=== PATIENT | female | born 1950 | race Caucasian/White ===

== ENCOUNTER 2018-09-30 06:03 | Inpatient (IN) ==
[2018-09-30] MEDS ORDERED: CeFAZolin Syr 2,000MG/20 ML 2,000 MG/20 ML SYRINGE IVPB ONE (06:19)
[2018-09-30] MEDS ORDERED: Ringers Solution, Lactated 1,000 ML IVC SCH ×3 (06:30→12:30)
--- NOTE | 2018-09-30 06:51 | Anesthesia Evaluation PreOp ---
Date of Encounter: 09/30/18 Time of Encounter: 06:49 - Past History Planned Operation: PLIF L4-5 Cardiac History: HTN, Hyperlipidemia Pulmonary History: Denies Any Significant HX INSERT CUTTER History: Other (anxiety, depression) Other Medical History: Denies Any Significant HX Anesthesia History: No Prior Anesthetic Complications, Past Anesthesia (tonsils) Alcohol Use: none Drug use: none Medications and Allergies Allergy/AdvReac Type Severity Reaction Status Date / Time aspirin [ASA] AdvReac Gastrointestinal Verified 07/17/16 14:44 Upset NSAIDS (Non-Steroidal AdvReac Gastrointestinal Verified 07/17/16 14:44 Anti-Inflamma Upset - Meds/Allergy Pre-op Review Medications Reviewed: Yes Allergies Reviewed: Yes Beta Blockers on Current Med List: Yes If Beta Blockers taken, Date/Time (Last Dose taken): today 444 Anesthesia Results - Labs Selected Entries 09/30/18 06:35 Temperature 98.6 F Pulse Rate 65 Respiratory Rate 18 Blood Pressure 146/80 O2 Sat by Pulse Oximetry 95 Laboratory Tests 09/24/18 09/24/18 14:50 14:50 Hgb 13.1 Hct 40.7 Plt Count 298 Sodium 137 Potassium 3.6 BUN 11 Creatinine 0.79 - Imaging EKG: report reviewed (SINUS RHYTHM POSSIBLE LEFT ATRIAL ENLARGEMENT INCOMPLETE RIGHT BUNDLE BRANCH BLOCK POSSIBLE ANTERIOR MYOCARDIAL INFARCTION, OF INDETERMINATE AGE) Anesthesia Exam Selected Entries 09/30/18 06:35 Temperature 98.6 F Pulse Rate 65 Respiratory Rate 18 Blood Pressure 146/80 O2 Sat by Pulse Oximetry 95 Weight: 91kg BMI 34 NPO (# of Hours): 8 - HEENT Pupil (Motor): EOMI Mallampati: III Teeth: Missing, Poor dentition Oral Opening: Less than or equal to 3 - INSERT CUTTER LOC: Oriented INSERT CUTTER Motor: Normal RUE, Normal LUE, Normal RLE, Normal LLE, Normal Face INSERT CUTTER Sensory: Normal: RUE, LUE, RLE, LLE, Face - Cardiac Rhythm: Regular Murmur: None - Pulmonary Breath Sounds: bilateral Clear Respiratory Effort: Symmetrical Anesthesia Assess/Plan ASA Score: 3 Level of consciousness: Cooperative, Oriented, Tranquil Anesthetic Plan: General Monitoring Plan: Standard Monitors Recovery Plan: PACU (agrees to GA)
[2018-09-30] MEDS ORDERED: *HR* Rocuronium Bromide 50 MG/5 ML VIAL ONE (07:03)
[2018-09-30] MEDS ORDERED: Dexamethasone 4 MG/ML VIAL ONE (07:03)
[2018-09-30] MEDS ORDERED: *HR* Propofol 200 MG/20 ML VIAL IVP ONE (07:03)
[2018-09-30] MEDS ORDERED: Ondansetron 4 MG/2 ML VIAL ONE (07:03)
[2018-09-30] MEDS ORDERED: Lidocaine -MPF 2% 2 ML VIAL ONE (07:03)
[2018-09-30] MEDS ORDERED: *HR* Remifentanil 1 MG VIAL IVP ONE ×2 (07:04→08:56)
[2018-09-30] MEDS ORDERED: *HR* Methadone 10 MG TABLET PO ONE (07:05)
[2018-09-30] MEDS ORDERED: Gabapentin 300 MG CAPSULE PO ONE (07:06)
[2018-09-30] MEDS ORDERED: *HR* Midazolam HCl 2 MG/2 ML VIAL IVP PRN (07:07)
[2018-09-30] MEDS ORDERED: *HR* OxyCODONE Immed Rel 5 MG TABLET PO PRN (07:07)
[2018-09-30] MEDS ORDERED: *HR* Promethazine 25 MG/ML VIAL IVP PRN (07:07)
--- NOTE | 2018-09-30 07:29 | History & Physical Report ---
Date of Encounter: 09/30/18 Time of Encounter: 07:28 24 Hour HP Update - Instructions Instructions: If the History and Physical is less than 30 days old and was completed prior to A.M. admission and or procedure and has NOT been updated on calendar day of procedure please complete this update prior to performing procedure. - Update Patient reports changes in Medical Condition: No Changes in examination, assessment, or condition: No Changes in Medication: No Preop tests/diagnostics Reviewed: Yes Pre-Op MRSA Screen: Negative Surgery Remains Indicated: Yes Consent for Planned Operative Procedure(s) Verified: Yes - Pre-Operative Checklist Preoperative Checklist Indicated: No Prophylactic Antibiotic Ordered: Yes Home Medications Include Beta Tip: Yes Beta Tip Taken Today (Day of Surgery): No Beta Tip Taken Yesterday (Day Prior to Surgery): Yes Is VTE Prophylaxis Indicated?: Yes
[2018-09-30] MEDS ORDERED: Bacitracin 50,000 UNIT, Polymyxin B Sulfate 500,000 UNIT, Sodium Chloride IRRigation 1,... IR ONE (07:45)
[2018-09-30] MEDS ORDERED: *HR* Succinylcholine 200 MG/10 ML VIAL IVP ONE (07:50)
[2018-09-30] MEDS ORDERED: *HR* FentaNYL (PF) 100 MCG/2 ML VIAL ONE (07:51)
[2018-09-30] MEDS ORDERED: EPHEDrine 50 MG/ML VIAL ONE (08:10)
[2018-09-30] MEDS ORDERED: Neostigmine Methylsulfate 3 MG/3 ML SYRINGE ONE (10:52)
[2018-09-30] MEDS ORDERED: *HR* HYDROMORPHONE 2 MG/ML VIAL ONE (11:03)
--- NOTE | 2018-09-30 11:07 | Orthopedic Operative Note ---
Date of procedure: 09/30/18 Pre-op diagnosis: Spondylolisthesis, lumbar stenosis, lumbar radiculopathy Post-op diagnosis: same Operation/Findings: Posterior lumbar interbody fusion L4-L5: The patient successfully underwent general endotracheal anesthesia. The patient was given antibiotics prior to the start of the procedure. Compression boots and stockings were used for deep vein thrombosis prophylaxis. A Monaco catheter was placed. Leads for neuro monitoring were placed on the upper and lower extremities. This included the cranium. The neuro monitoring personnel confirmed there were satisfactory readings prior to the start of the procedure. The patient was turned prone on the Kevin table. The back was prepped and draped in the usual sterile fashion. An incision was was marked and centered over the involved L4-L5 levels in the mid line. The incision was deepened through the lumbar fascia. Bovie cautery and Osborne elevators were used to reflect the paraspinal musculature at the lateral extent of the transverse processes of the involved L4 and L5 levels. Kait clamps were placed over the L4 and L5 spinous processes. An intraoperative lateral fluorograph was obtained. A conversation was held between the surgeon and radiologist and both confirmed we had the correct operative levels. We then placed pedicle screws in standard fashion with the aid of fluoroscopy and anatomic landmarks. Briefly a starter awl was used. A gearshift was subsequently used to enter the airplane pilot commercial hole via a transpedicular route into the vertebral body. The airplane pilot commercial hole was tapped with an undersized instrument, and subsequently four 6.5 x 40 mm pedicle screws were placed bilaterally at the indicated L4 and L5 levels. The screws were tested with the aid of the neurologic monitoring staff via pedicle screw stimulation. All reading suggested there was no significant cortical wall breech. The screws were also evaluated fluoro- graphically and appeared to be in satisfactory position. We then turned our attention to the decompression portion of the procedure. We removed the supraspinous and interspinous ligaments and subsequently the insertion of the ligamentum flavum on the undersurface of the proximal L4 lamina was dislodged with a curette. We then removed the ligamentum flavum as well as undercut the facets at this L4-L5 level to decompress the lateral recesses. We also performed a L4 laminectomy. After the decompression, which was over and above that which was required to place the interbody graft, the foramen and traversing roots at this L4-L5 level were found to be free and patent. We also took part of the medial facets in order to aid in the decompression. We then protected the neural elements including the thecal sac and traversing nerve root on the right with a dural retractor. We made an annulotomy into the L4-L5 disc space and then removed disc material using Pituitary instruments. We trialed various size grafts after the endplates were prepared for graft insertion. A 10 x 26 enter body graft fit well within the L4-L5 disc space. We obtained some bone from the right posterior superior iliac spine through us a separate incision and combined with this with the bone which we had saved from the laminectomy portion of the procedure. This autograft bone was first placed in the anterior portion of the L4-L5 disc space and additional bone was placed within the interbody graft spacer. We then placed the interbody graft spacer obliquely across the L4-L5 disc space towards the midline while protecting the neural elements with a root retractor. When the graft was found to be in satisfactory position the microstrategy architect developer was removed. We then copiously irrigated the wound. We then decorticated the L4 and L5 transverse processes as well as the facet joints of the involved L4 and L5 levels to aid in the posterolateral fusion. We placed autograft bone in the lateral gutters over these regions. We then placed rods within the screw heads of the involved L4 and L5 levels and first locked the distal screws and then subsequently locked the proximal screws so as to improve and reduce the spondylolisthesis previously seen. We then closed the wound in layers with 1 Vicryl for the fascia, 2-0 Vicryl. Subcutaneous tissue, and Dermabond was used for skin closure. Sterile dressings were placed over the wound. The patient was turned supine on a hospital bed and extubated. All sponge instruments and needle counts were correct at the end of the procedure. The patient tolerated the procedure well without complications. Anesthesia: GETA Surgeon: Klaus Jacobo Jr Was there an research assistant member present: No Estimated blood loss (cc): 100 Specimen: None Condition: stable Disposition: PACU
[2018-09-30] MEDS: *HR* FentaNYL (PF) 100 MCG/2 ML VIAL IVP PRN ×4 (11:30→11:45)
--- NOTE | 2018-09-30 12:18 | Anesthesia Evaluation Post Op ---
Date of Encounter: 09/30/18 Time of Encounter: 12:00 - Vital Signs Vital Signs: Selected Entries 09/30/18 11:50 09/30/18 12:00 Temperature 98.5 F Pulse Rate 61 Respiratory Rate 16 Blood Pressure 120/79 O2 Sat by Pulse Oximetry 95 - Lungs Lungs: Clear Ascult./Percussion - Airway Airway: Non-obstructed - Cardiovascular Regular Rate - Mental Status Mental Status: Alert & Oriented, Answers Appropriately - Pain Pain Scale: 3 Pain Scale used: Numeric (1 - 10) - Nausea Vomiting Nausea Vomiting: Not Present - Hydration Hydration: Ice chips, Monaco catheter - Discharge PostOp Status: Transfer Patient to floor
[2018-09-30] MEDS ORDERED: Acetaminophen 325 MG TABLET PO PRN (12:30)
[2018-09-30] MEDS ORDERED: Naloxone 0.4 MG/ML INJ IVP PRN (12:30)
[2018-09-30] MEDS ORDERED: Ondansetron 4 MG/2 ML VIAL IVP PRN (12:30)
[2018-09-30] MEDS: *HR* HYDROcodone/Acet 5/325 mg TABLET PO PRN ×2 (13:18→21:20)
[2018-09-30] MEDS: Gabapentin 400 MG CAPSULE PO SCH ×2 (14:59→20:55)
[2018-09-30] MEDS: Methocarbamol 500 MG TABLET PO SCH ×2 (14:59→20:56)
[2018-09-30] MEDS: *HR* OxyCODONE Immed Rel 5 MG TABLET PO PRN (17:41)
[2018-09-30] MEDS: hydrOXYzine pamoate 25 MG CAPSULE PO SCH (20:55)
[2018-09-30] MEDS: cloNIDine HCl 0.1 MG TABLET PO SCH (20:55)
[2018-09-30] MEDS: traZODone 50 MG TABLET PO SCH (20:56)
[2018-10-01] MEDS: *HR* OxyCODONE Immed Rel 5 MG TABLET PO PRN ×5 (00:24→21:08)
[2018-10-01] MEDS: *HR* HYDROcodone/Acet 5/325 mg TABLET PO PRN ×2 (08:43→18:26)
[2018-10-01] MEDS: cloNIDine HCl 0.1 MG TABLET PO SCH ×2 (08:43→21:08)
[2018-10-01] MEDS: hydrOXYzine pamoate 25 MG CAPSULE PO SCH ×2 (08:43→21:07)
[2018-10-01] MEDS: Methocarbamol 500 MG TABLET PO SCH ×3 (08:43→21:08)
[2018-10-01] MEDS: hydroCHLOROthiazide 25 MG TABLET PO SCH (08:43)
[2018-10-01] MEDS: Gabapentin 400 MG CAPSULE PO SCH ×3 (08:43→21:08)
--- NOTE | 2018-10-01 08:59 | Orthopedics Progress Note ---
Date of Encounter: 10/01/18 Time of Encounter: 08:59 - Assessment and Plan (1) Spondylisthesis Current Visit: Yes Status: Acute Qualifiers: Spinal region: unspecified Qualified Code(s): M43.10 - Spondylolisthesis, site unspecified (2) Lumbar stenosis Current Visit: Yes Status: Chronic Qualifiers: Neurogenic claudication status: unspecified Qualified Code(s): M48.061 - Spinal stenosis, lumbar region without neurogenic claudication (3) Lumbar radiculopathy Current Visit: Yes Status: Chronic (4) Status post lumbar spinal fusion Current Visit: Yes Status: Chronic Subjective Principal diagnosis: s/p PLIF Interval history: Date of procedure: 09/30/18 Pre-op diagnosis: Spondylolisthesis, lumbar stenosis, lumbar radiculopathy Post-op diagnosis: same Operation/Findings: Posterior lumbar interbody fusion L4-L5 The patient is without complaints. Admits to ongoing preoperative symptoms though states it is mildly improved. Pain in low back, buttocks. Labs and vitals reviewed. LSO in place. Neurovascularly intact with regard to bilateral lower extremities. Fires all upper and lower extremity motor groups. Assessment :stable. Plan mobilize ,continue analgesics as needed, discharge planning - awaiting PT recommendations Objective Vital signs: Vital Signs Temp Pulse Resp BP Pulse Ox 10/01/18 06:46 98.4 F 67 18 107/60 98 10/01/18 04:03 97.9 F 66 17 113/66 98 09/30/18 22:36 97.6 F 61 14 115/67 96 09/30/18 18:40 97.8 F 77 17 113/67 98 09/30/18 15:40 98.2 F 72 18 128/76 96 09/30/18 14:35 98.2 F 75 16 115/76 96 09/30/18 14:00 96 09/30/18 13:25 98.2 F 64 15 130/78 96 09/30/18 13:04 98.0 F 64 17 107/63 97 09/30/18 12:39 98.4 F 62 16 135/78 95 09/30/18 12:20 98.2 F 62 16 127/70 95 09/30/18 12:10 98.0 F 61 16 131/79 94 09/30/18 12:00 61 16 120/79 95 09/30/18 11:50 98.5 F 64 16 144/71 94 09/30/18 11:40 64 16 158/84 93 09/30/18 11:30 67 16 165/118 94 09/30/18 11:20 98.0 F 70 16 197/98 98 Intake and Output 09/30/18 10/01/18 10/01/18 23:59 07:59 15:59 Intake Total 950 / 950 50 / 50 Output Total 1500 / 1500 1700 / 1700 Balance -550 / -550 -1650 / -1650 Intake: IV Fluids 200 / 200 Ancef 2,000 MG In 0.9 % Sodium 200 / 200 Chloride 100 ML @ 200 mls/hr IVPB Q8HR [facility] Rx#:[id number] Oral 750 / 750 50 / 50 Output: Catheter 1500 / 1500 1700 / 1700 Other: Meal Dinner Consult Discharge Plan - Plan Prescriptions: RX: OxyCODONE Immed Rel [Roxicodone 5 MG] 5 mg PO Q6HR PRN 5 Days #20 tablet PRN Reason: Breakthrough Pain RX: diazePAM [Valium] 2 mg PO Q6H PRN 7 Days #28 tablet PRN Reason: pain/spasms RX: Docusate Sodium [Colace] 100 mg PO BID 5 Days #10 capsule
[2018-10-01] MEDS ORDERED: CITALOPRAM HYDROBROMIDE PO SCH (09:00)
[2018-10-01] MEDS: traZODone 50 MG TABLET PO SCH (21:08)
[2018-10-02] MEDS: *HR* OxyCODONE Immed Rel 5 MG TABLET PO PRN ×4 (02:28→17:51)
--- NOTE | 2018-10-02 08:43 | Discharge Summary ---
Orders not resulted at time of discharge: Pending orders 09/30/18 XR fluoroscopy <1 hr [XR] Routine 10/03/18 07:00 XR lumbar spine 2-3V [XR] Routine Date of Encounter: 10/02/18 - Hospital Course Hospital course: Ms. Garcia is a 68 year old female - Time Spent with Patient Total time spent providing and/or coordinating discharge services: - Discharge Medications Prescriptions: No Action Citalopram Hydrobromide [Citalopram HBr] 80 mg PO DAILY cloNIDine HCl [CloNIDine HCl] 0.1 mg PO BID Gabapentin 800 mg PO TID hydroCHLOROthiazide [Hydrochlorothiazide] 25 mg PO DAILY HYDROcodone/Acet 7.5/325 mg [[place] 7.5-325 mg] 1 tab PO QID hydrOXYzine pamoate [HydrOXYzine Pamoate] 25 mg PO BID Methocarbamol [Robaxin] 500 mg PO TID Metoprolol Tartrate 50 mg PO BID Simvastatin [Zocor] 40 mg PO HS Trazodone HCl 150 mg PO HS Home Medications: Citalopram Hydrobromide [Citalopram HBr] 80 mg PO DAILY 09/30/18 [History] Gabapentin 800 mg PO TID 09/30/18 [History] HYDROcodone/Acet 7.5/325 mg [[place] 7.5-325 mg] 1 tab PO QID 09/30/18 [History] Methocarbamol [Robaxin] 500 mg PO TID 09/30/18 [History] Metoprolol Tartrate 50 mg PO BID 09/30/18 [History] Simvastatin [Zocor] 40 mg PO HS 09/30/18 [History] Trazodone HCl 150 mg PO HS 09/30/18 [History] cloNIDine HCl [CloNIDine HCl] 0.1 mg PO BID 09/30/18 [History] hydrOXYzine pamoate [HydrOXYzine Pamoate] 25 mg PO BID 09/30/18 [History] hydroCHLOROthiazide [Hydrochlorothiazide] 25 mg PO DAILY 09/30/18 [History] Allergies/Adverse Reactions: Allergy/AdvReac Type Severity Reaction Status Date / Time aspirin [ASA] AdvReac Gastrointestinal Verified 07/17/16 14:44 Upset NSAIDS (Non-Steroidal AdvReac Gastrointestinal Verified 07/17/16 14:44 Anti-Inflamma Upset Date of admission: 09/30/18 12:15 Primary care physician: Chanelle Lima CNP Consults: 09/30/18 12:30 Consult to Occupational Therapy [CONS] Routine Comment: Evaluate, develop and implement POC Reason for Consult: Postoperative rehabilitation Does patient have active BEDREST order?: No Is patient medically & hemodynamically stable?: Yes Patient assessed for mobility or mobilized this visit?: No Consult to Physical Therapy [CONS] Routine Comment: Evaluate, develop and implement POC Reason for Consult: Postoperative rehabilitation Does patient have active BEDREST order?: No Is patient medically & hemodynamically stable?: Yes Patient assessed for mobility or mobilized this visit?: No Consult to Spine Navigator [CONS] [CONS] Routine - Impressions ITS Impressions Lumbar Spine X-Ray 09/30/18 00:00 IMPRESSION: 1. Status post L4/L5 posterior fusion and discectomy. No evidence of complication. 2. Mild multilevel degenerative disc disease. D/ / Branden Cartwright MD / Branden Cartwright MD Interpreting Provider: Branden Cartwright MD - Discharge Instructions Follow Up With: Chanelle Lima CNP [Primary Care Provider] -
[2018-10-02] MEDS: hydrOXYzine pamoate 25 MG CAPSULE PO SCH ×2 (09:15→21:12)
[2018-10-02] MEDS: Gabapentin 400 MG CAPSULE PO SCH ×3 (09:16→21:12)
[2018-10-02] MEDS: hydroCHLOROthiazide 25 MG TABLET PO SCH (09:17)
[2018-10-02] MEDS: Methocarbamol 500 MG TABLET PO SCH ×3 (09:17→21:12)
[2018-10-02] MEDS: cloNIDine HCl 0.1 MG TABLET PO SCH ×2 (09:18→21:12)
[2018-10-02] MEDS ORDERED: diazePAM 2 MG TABLET PO PRN (12:22)
--- NOTE | 2018-10-02 13:07 | Orthopedics Progress Note ---
Date of Encounter: 10/02/18 Time of Encounter: 09:20 - Assessment and Plan (1) Spondylisthesis Current Visit: Yes Status: Chronic Qualifiers: Spinal region: unspecified Qualified Code(s): M43.10 - Spondylolisthesis, site unspecified (2) Lumbar radiculopathy Current Visit: Yes Status: Chronic (3) Lumbar stenosis Current Visit: Yes Status: Chronic Qualifiers: Neurogenic claudication status: unspecified Qualified Code(s): M48.061 - Spinal stenosis, lumbar region without neurogenic claudication (4) Status post lumbar spinal fusion Current Visit: Yes Status: Chronic Subjective Principal diagnosis: s/p PLIF Interval history: Date of procedure: 09/30/18 Pre-op diagnosis: Spondylolisthesis, lumbar stenosis, lumbar radiculopathy Post-op diagnosis: same Operation/Findings: Posterior lumbar interbody fusion L4-L5 The patient is c/o significant pain uncontrolled with current medication regimen. Admits to ongoing preoperative symptoms though states it is mildly improved. Pain in low back, buttocks. Patient asking for change in medication regimen. Patient noted to take narcotic medication chronically - discussed tolerance may be part of issue - will add valium and lidoderm patch to aid as patient already taking Oxycodone, [place], Gabapentin, Robaxin and Acetaminophen. Labs and vitals reviewed. No drainage noted to dressing. Neurovascularly intact with regard to bilateral lower extremities. Fires all upper and lower extremity motor groups. Assessment :stable. Plan mobilize ,continue analgesics as noted, discharge planning - HH recom mendation from PT - discussed with patient re: discharge today as per Dr. Jacobo however patient states in too much pain and states will stay tonight to work on pain control. Will work on improved pain control and plan for discharge tomorrow, 10/03. Objective Vital signs: Vital Signs Temp Pulse Resp BP Pulse Ox 10/02/18 10:53 98.4 F 89 16 101/62 90 10/02/18 08:13 99.3 F 83 16 118/67 95 10/02/18 06:52 98.9 F 83 16 126/73 90 10/02/18 04:15 99.8 F H 78 18 97/60 91 10/01/18 23:34 98.3 F 82 18 107/63 92 10/01/18 18:56 98.8 F 75 17 130/76 94 04/04/19 15:52 115/68 10/01/18 15:33 98.8 F 75 18 105/6 96 10/01/18 13:48 98.5 F 67 98 111/64 Intake and Output 10/01/18 10/02/18 10/02/18 23:59 07:59 15:59 Intake Total 50 / 50 250 / 250 360 / 360 Output Total 250 / 250 Balance 50 / 50 250 / 250 110 / 110 Intake: Oral 50 / 50 250 / 250 360 / 360 Output: Urine 250 / 250 Other: Meal Breakfast Percent of Meal Consumed 100% # Voids 1 1 Weight 90.8 kg Patient Weight 10/02/18 23:59 Weight 90.8 kg Consult Discharge Plan - Plan Referrals: Chanelle Lima CNP [Primary Care Provider] - Prescriptions: RX: OxyCODONE Immed Rel [Roxicodone 5 MG] 5 mg PO Q6HR PRN 5 Days #20 tablet PRN Reason: Breakthrough Pain RX: diazePAM [Valium] 2 mg PO Q6H PRN 7 Days #28 tablet PRN Reason: pain/spasms RX: Docusate Sodium [Colace] 100 mg PO BID 5 Days #10 capsule
[2018-10-02] MEDS: traZODone 50 MG TABLET PO SCH (21:12)
[2018-10-03] MEDS: *HR* OxyCODONE Immed Rel 5 MG TABLET PO PRN ×3 (02:12→15:54)
[2018-10-03] MEDS: cloNIDine HCl 0.1 MG TABLET PO SCH ×2 (07:33→20:40)
[2018-10-03] MEDS: Methocarbamol 500 MG TABLET PO SCH ×3 (07:33→20:40)
[2018-10-03] MEDS: Gabapentin 400 MG CAPSULE PO SCH ×3 (07:33→20:40)
[2018-10-03] MEDS: hydrOXYzine pamoate 25 MG CAPSULE PO SCH ×2 (07:33→20:40)
[2018-10-03] MEDS: hydroCHLOROthiazide 25 MG TABLET PO SCH (07:34)
--- NOTE | 2018-10-03 15:39 | Orthopedics Progress Note ---
Date of Encounter: 10/03/18 Time of Encounter: 15:37 Subjective Principal diagnosis: Status PLIF Interval history: Patient reports pain is improving, painful getting out of bed once she ambulates the pain is gone Back: Dressings clean dry intact Bilateral calves soft and nontender Grossly neurovascular intact distally Assessment postoperative day #4 status post PLIF, improving pain Plan: Discharge home tomorrow morning Continue pain control Objective Vital signs: Vital Signs Temp Pulse Resp BP Pulse Ox 10/03/18 07:08 99.4 F 74 14 110/66 97 10/02/18 23:14 99.2 F 79 16 118/70 92 10/02/18 19:07 99.3 F 81 17 112/68 91 10/02/18 15:44 99.9 F H 81 16 118/72 90 Intake and Output 10/02/18 10/03/18 10/03/18 23:59 07:59 15:59 Intake Total 200 / 200 Balance 200 / 200 Intake: Oral 200 / 200 Other: Meal Breakfast Percent of Meal Consumed 100% # Voids 1 1 Consult Discharge Plan - Plan Referrals: Chanelle Lima, RECE[employer]ING [employer] C[employer]ODIAN [Primary Care Provider] - Prescriptions: OxyCODONE Immed Rel [Roxicodone 5 MG] 5 mg PO Q6HR PRN 5 Days #20 tablet PRN Reason: Breakthrough Pain diazePAM [Valium] 2 mg PO Q6H PRN 7 Days #28 tablet PRN Reason: pain/spasms Docusate Sodium [Colace] 100 mg PO BID 5 Days #10 capsule
[2018-10-03] MEDS: traZODone 50 MG TABLET PO SCH (20:39)
[2018-10-04] MEDS: *HR* OxyCODONE Immed Rel 5 MG TABLET PO PRN ×5 (03:08→21:06)
[2018-10-04] MEDS: hydroCHLOROthiazide 25 MG TABLET PO SCH (08:20)
[2018-10-04] MEDS: cloNIDine HCl 0.1 MG TABLET PO SCH ×2 (08:20→20:56)
[2018-10-04] MEDS: hydrOXYzine pamoate 25 MG CAPSULE PO SCH ×2 (08:20→20:56)
[2018-10-04] MEDS: Gabapentin 400 MG CAPSULE PO SCH ×3 (08:20→20:56)
[2018-10-04] MEDS: Methocarbamol 500 MG TABLET PO SCH ×3 (08:20→20:56)
--- NOTE | 2018-10-04 13:51 | Orthopedics Progress Note ---
Date of Encounter: 10/04/18 Time of Encounter: 13:50 Subjective Principal diagnosis: s/p PLIF Interval history: Patient reports pain is improving, painful getting out of bed once she ambulates the pain is gone Pt was supposed to leave this am, but waiting on hospital bed tomorrow Bilateral calves soft and nontender Grossly neurovascular intact distally Assessment postoperative day #5 status post PLIF, improving pain Plan: Discharge home tomorrow morning Continue pain control Objective Vital signs: Vital Signs Temp Pulse Resp BP Pulse Ox 10/04/18 12:33 98.3 F 79 15 106/68 96 10/04/18 07:50 98.0 F 68 16 122/61 94 10/04/18 04:28 98.4 F 73 20 102/63 94 10/03/18 22:18 99.1 F 77 16 106/67 95 10/03/18 19:45 98.8 F 82 16 125/64 93 10/03/18 16:07 99.0 F 79 16 109/58 94 Intake and Output 10/03/18 10/04/18 10/04/18 23:59 07:59 15:59 Intake Total 550 / 550 0 / 0 640 / 640 Output Total 0 / 0 0 / 0 Balance 550 / 550 0 / 0 640 / 640 Intake: Oral 550 / 550 0 / 0 640 / 640 Output: Urine 0 / 0 0 / 0 Other: Meal Lunch Percent of Meal Consumed 70% # Voids 1 1 1 Weight 91.78 kg Patient Weight 10/04/18 23:59 Weight 91.78 kg Consult Discharge Plan - Plan Referrals: Chanelle Lima, C[employer]IER AND SALESPERSON [Primary Care Provider] - Prescriptions: OxyCODONE Immed Rel [Roxicodone 5 MG] 5 mg PO Q6HR PRN 5 Days #20 tablet PRN Reason: Breakthrough Pain diazePAM [Valium] 2 mg PO Q6H PRN 7 Days #28 tablet PRN Reason: pain/spasms Docusate Sodium [Colace] 100 mg PO BID 5 Days #10 capsule
[2018-10-04] MEDS: traZODone 50 MG TABLET PO SCH (20:56)
[2018-10-05] MEDS: *HR* OxyCODONE Immed Rel 5 MG TABLET PO PRN ×2 (06:58→11:21)
[2018-10-05] MEDS: hydrOXYzine pamoate 25 MG CAPSULE PO SCH (07:54)
[2018-10-05] MEDS: cloNIDine HCl 0.1 MG TABLET PO SCH (07:54)
[2018-10-05] MEDS: Methocarbamol 500 MG TABLET PO SCH (07:54)
[2018-10-05] MEDS: Gabapentin 400 MG CAPSULE PO SCH (07:54)
[2018-10-05] MEDS: hydroCHLOROthiazide 25 MG TABLET PO SCH (07:54)
[2018-10-05 10:54] VITALS: BP 115/71
--- NOTE | 2018-10-05 12:11 | Discharge Summary ---
Orders not resulted at time of discharge: Pending orders 09/30/18 XR fluoroscopy <1 hr [XR] Routine Date of Encounter: 10/05/18 Time of Encounter: 08:40 - Discharge Diagnosis (1) Spondylisthesis Priority: Primary Status: Chronic Qualifiers: Spinal region: unspecified Qualified Code(s): M43.10 - Spondylolisthesis, site unspecified (2) Lumbar radiculopathy Priority: Primary Status: Chronic (3) Lumbar stenosis Priority: Primary Status: Chronic Qualifiers: Neurogenic claudication status: unspecified Qualified Code(s): M48.061 - Spinal stenosis, lumbar region without neurogenic claudication (4) Status post lumbar spinal fusion Priority: Primary Status: Chronic - Hospital Course Hospital course: Ms. Garcia is a 68 year old female Date of procedure: 09/30/18 Pre-op diagnosis: Spondylolisthesis, lumbar stenosis, lumbar radiculopathy Post-op diagnosis: same Operation/Findings: Posterior lumbar interbody fusion L4-L5 The patient had an uneventful postoperative course. Progressed from intravenous analgesic needs to oral analgesic needs only. Remained neurovascularly intact and mobilized satisfactorily. All intraoperative and/or postoperative radiographic studies were satisfactory. Patient requires frequent changes in body position and patient requires positioning of the body in ways not feasible with an ordinary bed to alleviate pain. Patient is discharged with plan for rehabilitation and follow-up in 2 weeks post discharge on analgesic medication and patient's home medications. - Time Spent with Patient Total time spent providing and/or coordinating discharge services: - Discharge Medications Prescriptions: New OxyCODONE Immed Rel [Roxicodone 5 MG] 5 mg PO Q6HR PRN 5 Days #20 tablet PRN Reason: Breakthrough Pain Docusate Sodium [Colace] 100 mg PO BID 5 Days #10 capsule Continue Citalopram Hydrobromide [Citalopram HBr] 80 mg PO DAILY cloNIDine HCl [CloNIDine HCl] 0.1 mg PO BID Gabapentin 800 mg PO TID hydroCHLOROthiazide [Hydrochlorothiazide] 25 mg PO DAILY HYDROcodone/Acet 7.5/325 mg [[place] 7.5-325 mg] 1 tab PO QID hydrOXYzine pamoate [HydrOXYzine Pamoate] 25 mg PO BID Methocarbamol [Robaxin] 500 mg PO TID Metoprolol Tartrate 50 mg PO BID Simvastatin [Zocor] 40 mg PO HS Trazodone HCl 150 mg PO HS Home Medications: Citalopram Hydrobromide [Citalopram HBr] 80 mg PO DAILY 09/30/18 [History] Gabapentin 800 mg PO TID 09/30/18 [History] HYDROcodone/Acet 7.5/325 mg [[place] 7.5-325 mg] 1 tab PO QID 09/30/18 [History] Methocarbamol [Robaxin] 500 mg PO TID 09/30/18 [History] Metoprolol Tartrate 50 mg PO BID 09/30/18 [History] Simvastatin [Zocor] 40 mg PO HS 09/30/18 [History] Trazodone HCl 150 mg PO HS 09/30/18 [History] cloNIDine HCl [CloNIDine HCl] 0.1 mg PO BID 09/30/18 [History] hydrOXYzine pamoate [HydrOXYzine Pamoate] 25 mg PO BID 09/30/18 [History] hydroCHLOROthiazide [Hydrochlorothiazide] 25 mg PO DAILY 09/30/18 [History] Docusate Sodium [Colace] 100 mg PO BID 5 Days #10 capsule 10/02/18 [Rx] OxyCODONE Immed Rel [Roxicodone 5 MG] 5 mg PO Q6HR PRN 5 Days #20 tablet 10/02/18 [Rx] Allergies/Adverse Reactions: Allergy/AdvReac Type Severity Reaction Status Date / Time aspirin [ASA] AdvReac Gastrointestinal Verified 07/17/16 14:44 Upset NSAIDS (Non-Steroidal AdvReac Gastrointestinal Verified 07/17/16 14:44 Anti-Inflamma Upset Date of admission: 09/30/18 12:15 Primary care physician: Chanelle Lima CNP Consults: 09/30/18 12:30 Consult to Occupational Therapy [CONS] Routine Comment: Evaluate, develop and implement POC Reason for Consult: Postoperative rehabilitation Does patient have active BEDREST order?: No Is patient medically & hemodynamically stable?: Yes Patient assessed for mobility or mobilized this visit?: No Consult to Physical Therapy [CONS] Routine Comment: Evaluate, develop and implement POC Reason for Consult: Postoperative rehabilitation Does patient have active BEDREST order?: No Is patient medically & hemodynamically stable?: Yes Patient assessed for mobility or mobilized this visit?: No Consult to Spine Navigator [CONS] [CONS] Routine Discharging clinician: Klaus Jacobo Jr Anticipated date of discharge: 10/05/18 - VTE Documentation of Mechanical Device: Graduated compression elastic hosiery - Impressions ITS Impressions Lumbar Spine X-Ray 09/30/18 00:00 IMPRESSION: 1. Status post L4/L5 posterior fusion and discectomy. No evidence of complication. 2. Mild multilevel degenerative disc disease. D/ / Branden Cartwright MD / Branden Cartwright MD Interpreting Provider: Branden Cartwright MD Lumbar Spine X-Ray 10/03/18 07:00 IMPRESSION: Postoperative L4-L5 posterior decompression and fusion without acute radiographic findings. D/ / 10/03/2018 15:19:20 Branden Melissa MD / liyah Interpreting Provider: Branden Melissa MD - Patient Status Disposition: Home, Self-Care Condition: Good Functional capacity at discharge: uses cane/walker Overall status at discharge: patient is progressing back to baseline - Discharge Instructions Follow Up With: Chanelle Lima, PROFESSOR OF MUSIC [Primary Care Provider] - Leslee Sales, PAC [Physician Automatic Lump Making Machine Tender] - 10/13/18 1:15 pm Klaus Jacobo Jr, MD [Partnered Physician] - 01/01/19 8:15 am Additional Instructions: Discharge Instructions: Lumbar Please call [facility] ([phone]), your Primary Care Physician, or report to the ER if you have any of the following symptoms: Fever greater that 101.5, increased pain/redness/drainage/odor for your incision site or any other concerning symptoms. ACTIVITY * May Shower * No Tub Baths * No lifting greater than 10 pounds * No Smoking * No Swimming * No off Ground Activities (Running, Climbing, Ladders, Horseback Riding) * No Driving * Wear Back Brace when up walking if lumbar fusion done * Incentive Spirometer 10 times an hour MEDICATIONS: Upon discharge resume your home medications. Take all the medications as prescribed. Take a stool softener if taking narcotic pain medications. Stool softeners are only effective if you drink enough fluids. Drink 6-8 glass of water or fluids a day, unless this is not allowed for another health problem. Despite using stool softeners, if you haven't had a bowel movement in 3 days, please switch to a gentle laxative. Gentle laxatives are sold over the counter. You should have a bowel movement within 24 hours, if not call the office. You will be discharged from the hospital with a prescription for pain medication. You are encouraged to decrease the use of narcotic pain medication as tolerated. Should you require a refill, please call the office. It is best to call 48-72 hours in advance of needing a prescription refill so you don't run out of medication. WOUND CARE: Remove Dressing Tomorrow. Leave incision open to air. Pat dry when you get out of the shower. FOLLOW-UP: Please follow up with your surgeon in the orthopedic clinic in 2 weeks from the day of surgery. References: [employer] ([email or web address]) - Diet and Activity Activity: as per physical therapy Diet: advance to your usual diet
== END 2018-10-05 13:51 | disposition home or self-care (01) | DRG 455 ==
LOC: SAMDAY 06:03 → 3NENU 12:15
PROVIDERS: ADMIT Orthopaedic Surgery Orthopaedic Surgery of the Spine; ATTEND Orthopaedic Surgery Orthopaedic Surgery of the Spine

== ENCOUNTER 2019-04-12 11:45 | Inpatient (IN) ==
[2019-04-12] MEDS ORDERED: Ringers Solution, Lactated 1,000 ML IVC SCH (12:30)
[2019-04-12] MEDS ORDERED: CeFAZolin Syr 2,000MG/20 ML 2,000 MG/20 ML SYRINGE IVPB ONE (12:30)
[2019-04-12] MEDS ORDERED: Famotidine 20 MG/2 ML VIAL IVP ONE (12:53)
[2019-04-12] MEDS ORDERED: Pregabalin 75 MG CAPSULE PO ONE (12:53)
[2019-04-12] MEDS ORDERED: Acetaminophen IV 1,000 MG/100 ML INFUS..BTL IVPB ONE (12:54)
[2019-04-12] MEDS ORDERED: traMADol 50 MG TABLET PO ONE (12:54)
[2019-04-12 13:11] LABS: Hematocrit 40.5 % (35.3-44.9); Hemoglobin 13.2 g/dL (11.5-15.4)
[2019-04-12] MEDS ORDERED: Ondansetron 4 MG/2 ML VIAL IVP ONE (13:40)
[2019-04-12] MEDS ORDERED: *HR* Promethazine 25 MG/ML VIAL IVP PRN ×2 (13:40→19:20)
[2019-04-12] MEDS ORDERED: *HR* FentaNYL (PF) 100 MCG/2 ML VIAL ONE (13:50)
[2019-04-12] MEDS ORDERED: Lidocaine -MPF 2% 2 ML VIAL ONE (13:50)
[2019-04-12] MEDS ORDERED: *HR* Midazolam HCl 2 MG/2 ML VIAL ONE (13:50)
[2019-04-12] MEDS ORDERED: *HR* Propofol 200 MG/20 ML VIAL IVP ONE (13:50)
[2019-04-12] MEDS ORDERED: Ethanol\\Acetic Acid\\Na Ace\\Ben 1,000 ML IRRIG.SOLN IR ONE (14:05)
[2019-04-12] MEDS ORDERED: *HR* Succinylcholine 200 MG/10 ML VIAL IVP ONE (14:22)
[2019-04-12] MEDS ORDERED: Lidocaine HCL 4 ML Topical Solution (Laryng-O-Jet Kit Sterile Pak) TP ONE (14:24)
[2019-04-12] MEDS ORDERED: Tranexamic Acid 1,000 MG/10 ML VIAL ONE (14:55)
[2019-04-12] MEDS ORDERED: *HR* HYDROMORPHONE 2 MG/ML VIAL ONE (15:18)
[2019-04-12] MEDS ORDERED: Ondansetron 4 MG/2 ML VIAL ONE (15:22)
[2019-04-12] MEDS ORDERED: Dexamethasone 4 MG/ML VIAL ONE (15:22)
[2019-04-12] MEDS ORDERED: *HR* PHENYLEPHRINE 1,000 MCG/10 ML SYRINGE IVP ONE (15:23)
[2019-04-12] MEDS: *HR* HYDROmorphone (PF) 1 MG/ML SYRINGE IVP PRN ×4 (16:38→16:53)
[2019-04-12 17:29] LABS: Hematocrit 38.2 % (35.3-44.9); Hemoglobin 12.3 g/dL (11.5-15.4)
[2019-04-12] MEDS ORDERED: traMADol 50 MG TABLET PO PRN (19:20)
[2019-04-12] MEDS ORDERED: Sennosides 8.6 MG TABLET PO PRN (19:20)
[2019-04-12] MEDS ORDERED: Ondansetron 4 MG/2 ML VIAL IVP PRN (19:20)
[2019-04-12] MEDS ORDERED: MOM Conc 10 ML UD.LIQ PO PRN (19:20)
[2019-04-12] MEDS ORDERED: Temazepam 15 MG CAPSULE PO PRN (19:20)
[2019-04-12] MEDS ORDERED: traZODone 50 MG TABLET PO PRN (19:20)
[2019-04-12] MEDS ORDERED: Naloxone 0.4 MG/ML INJ IVP PRN (19:20)
[2019-04-12] MEDS ORDERED: *HR* LORazepam 2 MG/ML VIAL IVP PRN ×3 (19:20)
[2019-04-12] MEDS: Gabapentin 400 MG CAPSULE PO SCH (20:00)
[2019-04-12] MEDS: Methocarbamol 500 MG TABLET PO SCH (20:00)
[2019-04-12] MEDS: hydrOXYzine pamoate 25 MG CAPSULE PO SCH (20:01)
[2019-04-12] MEDS: cloNIDine HCl 0.1 MG TABLET PO SCH (20:01)
[2019-04-12] MEDS: Ascorbic Acid 500 MG TABLET PO SCH (21:25)
[2019-04-12] MEDS: HYDROcodone BIT/Homatropine 5 MG TABLET PO PRN (21:26)
[2019-04-12] MEDS: Ringers Solution, Lactated 1,000 ML IVC SCH (21:27)
[2019-04-13] MEDS: Ringers Solution, Lactated 1,000 ML IVC SCH (00:31)
[2019-04-13] MEDS: HYDROcodone BIT/Homatropine 5 MG TABLET PO PRN (05:41)
[2019-04-13 05:59] LABS: Basophils % 0.1 %; Hematocrit 35.5 % (35.3-44.9); Hemoglobin 11.1 g/dL (11.5-15.4); Immature Granulocytes % 0.3 % (0-4); Lymphocytes # 1.9 K/mcL (0.6-4.6); Lymphocytes % 16.7 %; Mean Corpuscular HGB Conc 31.3 g/dL (31.6-35.5); Mean Corpuscular Hemoglobin 29.4 pg (28.0-33.3); Mean Corpuscular Volume 93.9 fL (83.0-100.0); Mean Platelet Volume 9.2 fL (9.4-12.4); Monocytes # 0.4 K/mcL (0.0-1.3); Monocytes % 3.7 %; Neutrophils # 9.2 K/mcL (1.6-8.9); Platelet Count 249 K/mcL (140-400); Red Blood Count 3.78 M/mcL (3.82-4.97); Red Cell Distribution Width 13.2 % (11.5-14.5); Segmented Neutrophils % 79.2 %; White Blood Count 11.6 K/mcL (4.3-11.1)
[2019-04-13 06:15] LABS: BUN/Creatinine Ratio 10 (6-26); Blood Urea Nitrogen 8 mg/dL (8-23); Calcium 8.8 mg/dL (8.6-10.3); Carbon Dioxide 29 mEq/L (23-29); Chloride 103 mEq/L (98-107); Glucose 162 mg/dL (70-105); Osmolality,Calculated 294 (280-300); Potassium 3.6 mEq/L (3.5-5.1); Sodium 141 mEq/L (136-145); eGFR For African Americans > 60 (> 60); eGFR For Non-African Americans > 60 (> 60)
[2019-04-13] MEDS ORDERED: *HR* Enoxaparin 30 MG/0.3 ML SYRINGE SQ SCH (08:00)
[2019-04-13] MEDS: *HR* OxyCODONE Immed Rel 5 MG TABLET PO PRN ×3 (09:24→21:35)
[2019-04-13] MEDS: *HR* Enoxaparin 30 MG/0.3 ML SYRINGE SQ SCH ×2 (09:26→21:37)
[2019-04-13] MEDS: Ascorbic Acid 500 MG TABLET PO SCH ×2 (09:26→15:49)
[2019-04-13] MEDS: hydroCHLOROthiazide 25 MG TABLET PO SCH (09:26)
[2019-04-13] MEDS: cloNIDine HCl 0.1 MG TABLET PO SCH ×2 (09:27→21:36)
[2019-04-13] MEDS: Methocarbamol 500 MG TABLET PO SCH ×3 (09:27→21:35)
[2019-04-13] MEDS: Multivit/Ca/Min/Fe/FA 1 TAB TABLET PO SCH (09:27)
[2019-04-13] MEDS: hydrOXYzine pamoate 25 MG CAPSULE PO SCH ×2 (09:28→21:36)
[2019-04-13] MEDS: Gabapentin 400 MG CAPSULE PO SCH ×3 (09:28→21:36)
[2019-04-13] MEDS ORDERED: Nicotine 21 MG PATCH.TD24 TD SCH (10:15)
[2019-04-13 17:32] LABS: INR 1.1
[2019-04-14 06:36] VITALS: BP 128/76
[2019-04-14] MEDS: Methocarbamol 500 MG TABLET PO SCH (07:49)
[2019-04-14] MEDS: hydroCHLOROthiazide 25 MG TABLET PO SCH (07:49)
[2019-04-14] MEDS: Ascorbic Acid 500 MG TABLET PO SCH (07:50)
[2019-04-14] MEDS: *HR* OxyCODONE Immed Rel 5 MG TABLET PO PRN (07:50)
[2019-04-14] MEDS: Gabapentin 400 MG CAPSULE PO SCH (07:50)
[2019-04-14] MEDS: hydrOXYzine pamoate 25 MG CAPSULE PO SCH (07:50)
[2019-04-14] MEDS: cloNIDine HCl 0.1 MG TABLET PO SCH (07:50)
[2019-04-14] MEDS: Multivit/Ca/Min/Fe/FA 1 TAB TABLET PO SCH (07:50)
[2019-04-14] MEDS: *HR* Enoxaparin 30 MG/0.3 ML SYRINGE SQ SCH (07:51)
[2019-04-14 07:53] LABS: Basophils % 0.2 %; Eosinophils % 0.1 %; Hematocrit 30.7 % (35.3-44.9); Hemoglobin 9.6 g/dL (11.5-15.4); Immature Granulocytes % 0.6 % (0-4); Lymphocytes # 3.6 K/mcL (0.6-4.6); Lymphocytes % 34.5 %; Mean Corpuscular HGB Conc 31.3 g/dL (31.6-35.5); Mean Corpuscular Hemoglobin 29.7 pg (28.0-33.3); Mean Platelet Volume 9.2 fL (9.4-12.4); Monocytes # 0.8 K/mcL (0.0-1.3); Monocytes % 7.9 %; Platelet Count 232 K/mcL (140-400); Red Blood Count 3.23 M/mcL (3.82-4.97); Red Cell Distribution Width 13.4 % (11.5-14.5); Segmented Neutrophils % 56.7 %; White Blood Count 10.5 K/mcL (4.3-11.1)
[2019-04-14 08:02] LABS: BUN/Creatinine Ratio 12 (6-26); Blood Urea Nitrogen 10 mg/dL (8-23); Calcium 8.5 mg/dL (8.6-10.3); Carbon Dioxide 32 mEq/L (23-29); Chloride 103 mEq/L (98-107); Glucose 111 mg/dL (70-105); Osmolality,Calculated 292 (280-300); Potassium 3.3 mEq/L (3.5-5.1); Sodium 141 mEq/L (136-145); eGFR For African Americans > 60 (> 60); eGFR For Non-African Americans > 60 (> 60)
== END 2019-04-14 10:55 | disposition home health service (06) | DRG 470 ==
LOC: SAMDAY 11:45 → 3NENU 17:52
PROVIDERS: ADMIT Orthopaedic Surgery; ATTEND Orthopaedic Surgery